=== PATIENT | female | born 1950 | race Caucasian/White ===

== ENCOUNTER 2017-08-30 09:52 | Emergency (ER) | payer OTHER, MEDICARE ==
[~2017-08-30] VITALS: Ht 165.1 cm; Wt 85.4 kg
[~2017-08-30 09:52] MED LIST: ACCUNEB SO1.25 MG/1 INH; CIPROFLOXIN HC2.5 M1 OPHTHALMIC; CYCLOBENZAPRINE10 MG PO; FLAGYL500 MG PO; HYDROCODONE-AP1 EAC6 PO; LEVAQUIN 500 M500 M2 PO; LISINOPRIL5 MG PO; NEXIUM40 MG PO; NOHOMEMEDICATIONS; NORCO 5-325 TA1 EACH PO; PREDNISONE 10 M10 MG PO; XANAX 0.5 MG0.5 MG PO; ZOFRAN ODT4 MG PO
[2017-08-30 10:19] LABS: ABSOLUTE EOSINOPHILS 0.1 thou/uL (0.0-0.7); ABSOLUTE LYMPHOCYTES 1.3 thou/uL (0.8-5.3); ABSOLUTE MONOCYTES 0.6 thou/uL (0.0-1.2); ABSOLUTE NEUTROPHILS 2.3 thou/uL (1.6-8.1); BASOPHILS 0.6 %; EOSINOPHILS 2.9 %; HEMATOCRIT 40.7 % (37.0-47.0); HEMOGLOBIN 13.5 gm/dL (12.0-15.0); MCH 27.2 pg (26.0-34.0); MCHC 33.1 g/dL (28.0-37.0); MCV 82.2 fL (80.0-100.0); MONOCYTES 13.5 %; NUCLEATED RBCS 0 /100WBC; PLATELET COUNT* 351 thou/uL (150-400); RBC 4.95 mil/uL (4.20-5.00); RDW-CV 14.2 % (10.5-14.5); WBC 4.4 thou/uL (4.0-11.0)
[2017-08-30 10:31] LABS: ANION GAP 7 mmol/L (7-16); BUN 16 mg/dL (7-18); CALCIUM 8.7 mg/dL (8.5-10.1); CHLORIDE 105 mmol/L (98-107); CO2 28 mmol/L (21-32); CREATININE 0.6 mg/dL (0.6-1.3); GLUCOSE 98 mg/dL (70-99); POTASSIUM 3.7 mmol/L (3.5-5.1); SODIUM 140 mmol/L (136-145)
[2017-08-30 10:39] LABS: ALBUMIN 3.6 g/dL (3.4-5.0); ALKALINE PHOSPHATASE 73 U/L (46-116); SGOT 22 U/L (15-37); SGPT 28 U/L (30-65); TOTAL BILIRUBIN 0.5 mg/dL (<0.1-1.0); TOTAL PROTEIN 7.8 g/dL (6.4-8.2); TROPONIN-I LEVEL <0.06 ng/mL (<0.06)
[2017-08-30 12:15] LABS: URINE BILIRUBIN NEGATIVE (Negative); URINE BLOOD TRACE (Negative); URINE CLARITY CLEAR; URINE COLOR YELLOW; URINE GLUCOSE-RANDOM NEGATIVE (Negative); URINE KETONES NEGATIVE (Negative); URINE LEUKOCYTES-REFLEX NEGATIVE (Negative); URINE NITRITE-REFLEX NEGATIVE (Negative); URINE PROTEIN NEGATIVE (Negative); URINE UROBILINOGEN 0.2 E.U./dl (0.2-1.0)
[2017-08-30] MEDS ORDERED: CARAFATE 1 GM TA1 G1 PO (12:39)
[2017-08-30] MEDS ORDERED: ZOFRAN ODT4 MG PO (12:39)
[2017-08-30] MEDS ORDERED: TRAMADOL 50 MG50 MG PO (12:39)
[2017-08-30 12:58] VITALS: BP 136/58
--- NOTE | 2017-08-30 15:50 | EKG ---
[place] [address] ELECTROCARDIOGRAM REPORT Name: ALEK HANNAH Room: [facility]#: [id number] Admission: 08/30/17 Attend Phys: Discharge: 08/30/17 Date of : 52 Report #: [id number] THIS REPORT FOR: //name// [facility] ED Test Date: 2017-08-30 Test Time: 09:58:00 Pat Name: ALEK KEITAANIEL Department: Room: Gender: F Operations/Dispatch: : 1950 Requested By: Javan Doan Order Number: [id number] MD: Connor Guo Measurements Intervals [place] Rate: 70 P: 27 PA: 130 QRS: -19 QRSD: 88 T: 8 QT: 388 QTc: 419 Interpretive Statements Sinus rhythm Abnormal R-wave progression, early transition Inferior infarct, old possible Baseline wander in lead(s) II,aVR,V1 No previous ECG available for comparison Electronically Signed On 08-30-2017 15:50:23 JUDO INSTRUCTOR by Connor Guo [email or web address] <ELECTRONICALLY SIGNED> By: Connor Guo MD, [facility] 08/30/17 [id number] [phone] Connor Guo MD, FAC /EPI
[2017-08-30] MEDS ORDERED: PRILOSEC 20 MG20 MG PO (23:52)
[2017-08-30] MEDS ORDERED: PROMS25 WY RECTAL ×2 (23:52→23:56)
[2017-08-30] MEDS ORDERED: PEPCID20 MG PO (23:52)
== END 2017-08-30 12:59 | disposition home or self-care (01) ==
LOC: M.ERS 09:52
PROVIDERS: Emergency Medicine Emergency Medical Services
DX: R07.89 Other chest pain (principal); K21.9 Gastro-esophageal reflux disease without esophagitis; F10.99 Alcohol use, unspecified with unspecified alcohol-induced disorder; Z90.710 Acquired absence of both cervix and uterus; Z98.890 Other specified postprocedural states; Z88.5 Allergy status to narcotic agent; Z88.1 Allergy status to other antibiotic agents

== ENCOUNTER 2017-08-30 21:32 | Emergency (ER) | payer OTHER, MEDICARE ==
[~2017-08-30] VITALS: Ht 162.6 cm; Wt 79.4 kg
--- NOTE | ~2017-08-30 | EKG ---
[place] [address] ELECTROCARDIOGRAM REPORT Name: ALEK HANNAH [id number] Admission: 08/30/17 Attend Phys: Discharge: 08/31/17 Date of : 52 Report #: [id number] THIS REPORT FOR: //name// [facility] ED Test Date: 2017-08-30 Test Time: 23:31:22 Pat Name: ALEK HANNAH Department: Room: Gender: F Sponge Diver: IZAIAH : 1950 Requested By: Louise Almeida Order Number: [id number] MD: Measurements Intervals [place] Rate: 74 P: 22 AK: 128 QRS: -17 QRSD: 96 T: -2 QT: 403 QTc: 448 Interpretive Statements Sinus rhythm Borderline left axis deviation Low voltage, precordial leads RSR' in V1 or V2, right VCD or RVH Borderline T abnormalities, diffuse leads Compared to ECG 08/30/2017 09:58:00 Low QRS voltage now present Right ventricular hypertrophy now present RSR' in V1 or V2 now present T-wave abnormality now present Myocardial infarct finding no longer present [email or web address] By: 30 30 Epiphany EpiphanyMD /FRANCO
[~2017-08-30 21:32] MED LIST changes: +CARAFATE 1 GM TA1 G1 PO; +TRAMADOL 50 MG50 MG PO
[2017-08-30 22:55] LABS: ABSOLUTE EOSINOPHILS 0.1 thou/uL (0.0-0.7); ABSOLUTE LYMPHOCYTES 0.8 thou/uL (0.8-5.3); ABSOLUTE MONOCYTES 0.7 thou/uL (0.0-1.2); ABSOLUTE NEUTROPHILS 4.3 thou/uL (1.6-8.1); BASOPHILS 0.8 %; EOSINOPHILS 1.5 %; HEMOGLOBIN 13.4 gm/dL (12.0-15.0); LYMPHOCYTES 13.4 %; MCH 27.3 pg (26.0-34.0); MCHC 32.8 g/dL (28.0-37.0); MCV 83.1 fL (80.0-100.0); MPV 7.8 fl. (7.2-11.1); NUCLEATED RBCS 0 /100WBC; PLATELET COUNT* 340 thou/uL (150-400); POLYS 72.3 %; RBC 4.93 mil/uL (4.20-5.00); RDW-CV 14.2 % (10.5-14.5)
[2017-08-30 23:04] LABS: ANION GAP 8 mmol/L (7-16); BUN 17 mg/dL (7-18); CALCIUM 8.6 mg/dL (8.5-10.1); CHLORIDE 103 mmol/L (98-107); CO2 29 mmol/L (21-32); CREATININE 0.8 mg/dL (0.6-1.3); GLUCOSE 116 mg/dL (70-99); SODIUM 140 mmol/L (136-145)
[2017-08-30 23:10] LABS: ALBUMIN 3.7 g/dL (3.4-5.0); ALKALINE PHOSPHATASE 76 U/L (46-116); LIPASE 137 U/L (73-393); SGOT 26 U/L (15-37); SGPT 33 U/L (30-65); TOTAL BILIRUBIN 0.3 mg/dL (<0.1-1.0); TROPONIN-I LEVEL <0.06 ng/mL (<0.06)
[2017-08-30] MEDS ORDERED: PEPCID20 MG PO (23:52)
[2017-08-30] MEDS ORDERED: PRILOSEC 20 MG20 MG PO (23:52)
[2017-08-30] MEDS ORDERED: PROMS25 WY RECTAL ×2 (23:52→23:56)
[2017-08-31 00:16] VITALS: BP 137/64
== END 2017-08-31 00:29 | disposition home or self-care (01) ==
LOC: M.ERS 21:32
PROVIDERS: Physician Assistant
DX: R11.2 Nausea with vomiting, unspecified (principal); F10.99 Alcohol use, unspecified with unspecified alcohol-induced disorder; K21.9 Gastro-esophageal reflux disease without esophagitis; Z88.1 Allergy status to other antibiotic agents; Z88.5 Allergy status to narcotic agent; Z90.710 Acquired absence of both cervix and uterus

== ENCOUNTER → 2018-04-16 | Outpatient (CLI) | payer OTHER, MEDICARE ==
[~2018-04-16] MED LIST changes: +PEPCID20 MG PO; +PRILOSEC 20 MG20 MG PO; +PROMS25 WY RECTAL
== END ==
LOC: M.RAD 16:02
DX: S22.080D Wedge compression fracture of T11-T12 vertebra, subsequent encounter for fracture with routine healing (principal); M54.41 Lumbago with sciatica, right side; M54.42 Lumbago with sciatica, left side; I70.0 Atherosclerosis of aorta; X58.XXXD Exposure to other specified factors, subsequent encounter

== ENCOUNTER → 2019-05-02 | Outpatient (CLI) | payer OTHER, MEDICARE ==
[2019-05-02 11:15] LABS: ABSOLUTE EOSINOPHILS 0.1 thou/uL (0.0-0.7); ABSOLUTE LYMPHOCYTES 1.2 thou/uL (0.8-5.3); ABSOLUTE MONOCYTES 0.5 thou/uL (0.0-1.2); ABSOLUTE NEUTROPHILS 2.8 thou/uL (1.6-8.1); BASOPHILS 0.8 %; EOSINOPHILS 2.6 %; HEMATOCRIT 35.5 % (37.0-47.0); HEMOGLOBIN 11.6 gm/dL (12.0-15.0); MCH 25.7 pg (26.0-34.0); MCHC 32.7 g/dL (28.0-37.0); MCV 78.7 fL (80.0-100.0); MONOCYTES 9.9 %; NUCLEATED RBCS 0 /100WBC; PLATELET COUNT* 341 thou/uL (150-400); POLYS 60.7 %; RBC 4.51 mil/uL (4.20-5.00); RDW-CV 16.6 % (10.5-14.5); WBC 4.7 thou/uL (4.0-11.0)
[2019-05-02 11:29] LABS: ALBUMIN 3.6 g/dL (3.4-5.0); ALKALINE PHOSPHATASE 81 U/L (46-116); ANION GAP 11 mmol/L (7-16); BUN 17 mg/dL (7-18); CALCIUM 8.8 mg/dL (8.5-10.1); CHLORIDE 103 mmol/L (98-107); CHOLESTEROL 208 mg/dL (<200); CO2 27 mmol/L (21-32); CREATININE 0.6 mg/dL (0.6-1.3); GLUCOSE 88 mg/dL (70-99); HDL CHOLESTEROL 66 mg/dL (>40); LDL CHOLESTEROL 131 mg/dL (<100); POTASSIUM 3.5 mmol/L (3.5-5.1); SERUM ASSESSMENT Clear; SGOT 14 U/L (15-37); SGPT 17 U/L (30-65); SODIUM 141 mmol/L (136-145); TC:HDL 3.2 Ratio (Not establshd); TOTAL BILIRUBIN 0.5 mg/dL (<0.1-1.0); TOTAL PROTEIN 7.6 g/dL (6.4-8.2); TRIGLYCERIDE 59 mg/dL (<150); TROPONIN-I LEVEL <0.06 ng/mL (<0.06); VLDL 12 mg/dL (<40)
[2019-05-02 15:29] LABS: % SATURATION 11 % (20-39); IRON 46 ug/dL (50-175)
== END ==
LOC: M.LAB 10:57
PROVIDERS: Family Medicine
DX: Z13.220 Encounter for screening for lipoid disorders (principal); R07.9 Chest pain, unspecified; D64.9 Anemia, unspecified

== ENCOUNTER → 2019-05-16 | Outpatient (CLI) | payer OTHER, MEDICARE ==
[2019-05-16 10:53] LABS: ABSOLUTE EOSINOPHILS 0.1 thou/uL (0.0-0.7); ABSOLUTE LYMPHOCYTES 1.3 thou/uL (0.8-5.3); ABSOLUTE MONOCYTES 0.5 thou/uL (0.0-1.2); ABSOLUTE NEUTROPHILS 2.5 thou/uL (1.6-8.1); BASOPHILS 0.7 %; EOSINOPHILS 2.9 %; HEMATOCRIT 36.3 % (37.0-47.0); HEMOGLOBIN 12.1 gm/dL (12.0-15.0); MCH 25.9 pg (26.0-34.0); MCHC 33.3 g/dL (28.0-37.0); MONOCYTES 10.9 %; MPV 7.7 fl. (7.2-11.1); NUCLEATED RBCS 0 /100WBC; PLATELET COUNT* 406 thou/uL (150-400); POLYS 55.5 %; RBC 4.66 mil/uL (4.20-5.00); RDW-CV 16.2 % (10.5-14.5); WBC 4.5 thou/uL (4.0-11.0)
[2019-05-16 10:59] LABS: CALCIUM 8.6 mg/dL (8.5-10.1); CREATININE 0.6 mg/dL (0.6-1.3)
== END ==
LOC: M.LAB 10:29
PROVIDERS: Family Medicine
DX: M85.80 Other specified disorders of bone density and structure, unspecified site (principal); E61.1 Iron deficiency; D64.9 Anemia, unspecified; Z68.31 Body mass index [BMI] 31.0-31.9, adult

== ENCOUNTER → 2019-12-06 | Outpatient (CLI) | payer OTHER, MEDICARE ==
[2019-12-06 10:06] LABS: ABSOLUTE EOSINOPHILS 0.1 thou/uL (0.0-0.7); ABSOLUTE LYMPHOCYTES 1.1 thou/uL (0.8-5.3); ABSOLUTE MONOCYTES 0.4 thou/uL (0.0-1.2); ABSOLUTE NEUTROPHILS 2.1 thou/uL (1.6-8.1); BASOPHILS 0.8 %; EOSINOPHILS 2.9 %; HEMATOCRIT 34.8 % (37.0-47.0); HEMOGLOBIN 11.3 gm/dL (12.0-15.0); LYMPHOCYTES 29.7 %; MCH 24.7 pg (26.0-34.0); MCHC 32.6 g/dL (28.0-37.0); MCV 75.6 fL (80.0-100.0); MONOCYTES 10.4 %; NUCLEATED RBCS 0 /100WBC; PLATELET COUNT* 376 thou/uL (150-400); POLYS 56.2 %; RDW-CV 15.4 % (10.5-14.5); WBC 3.6 thou/uL (4.0-11.0)
[2019-12-06 10:20] LABS: ANION GAP 8 mmol/L (7-16); BUN 19 mg/dL (7-18); CALCIUM 8.5 mg/dL (8.5-10.1); CHLORIDE 104 mmol/L (98-107); CO2 28 mmol/L (21-32); CREATININE 0.7 mg/dL (0.6-1.3); GLUCOSE 93 mg/dL (70-99); POTASSIUM 4.1 mmol/L (3.5-5.1); SODIUM 140 mmol/L (136-145)
[2019-12-06 10:24] LABS: ALBUMIN 3.2 g/dL (3.4-5.0); ALKALINE PHOSPHATASE 79 U/L (46-116); CHOLESTEROL 233 mg/dL (<200); HDL CHOLESTEROL 61 mg/dL (>40); LDL CHOLESTEROL 157 mg/dL (<100); SGOT 16 U/L (15-37); SGPT 30 U/L (30-65); TC:HDL 3.8 Ratio (Not establshd); TOTAL BILIRUBIN 0.3 mg/dL (<0.1-1.0); TOTAL PROTEIN 7.5 g/dL (6.4-8.2); TRIGLYCERIDE 79 mg/dL (<150); VLDL 16 mg/dL (<40)
[2019-12-06 10:29] LABS: SERUM ASSESSMENT Clear
== END ==
LOC: M.LAB 09:00
PROVIDERS: ATTEND Family Medicine
DX: I10 Essential (primary) hypertension (principal); R07.89 Other chest pain

== ENCOUNTER → 2020-01-07 | Outpatient (CLI) | payer OTHER, MEDICARE ==
--- NOTE | 2020-01-07 16:36 | CARDNUC ---
[place] [address] CARDIAC NUCLEAR IMAGING REPORT Name: HANNAHALEK D Room: [facility]#: [id number] Admission: 01/07/20 Attend Phys: Michelle Alcala DO Discharge: Date of : 52 Date of Service: 01/07/20 1634 Report #: [id number] THIS REPORT FOR: cc: Michelle Alcala Maggie M. DO Liston, Michael J. MD [facility] ~ APPROVED REPORT Imaging Protocol: Rest Tc-99m/Stress Tc-99m 1 day Study performed: 01/07/2020 13:00:00 Indication: Chest pain with headache. Patient Location: Out-Patient Stress Tech: Patricia Zaman Stress Nurse: Yuki Lezama RN NM Tech:EMMIE Vuong Ht: 5 ft 2 in Wt: 185 lbs BSA: 1.85 m2 BMI: 33.83 Medical History Medical History: Chest pain with headache in back of head, HTN, Obesity. Medications: Lisinopril. Allergies: Codeine, Dilaudid. Cardiac Risk Factors: Age, HTN, Obesity. Previous Cardiac Procedures: None Pretest Chest Pain Characteristics: No chest pain Exercise History: Indeterminate Physical Disabilities: Arthritis, knee discomfort. Meds Held (24 hrs): None Resting Data Rest SPECT myocardial perfusion imaging was performed in supine position 30 minutes following the intravenous injection of 10.0 mCi of Tc-99m Sestamibi. Time of rest injection: 1315 Date: 01/07/2020 The images were gated to evaluate regional wall motion and calculate left ventricular ejection fraction. Administration Route: IV Administration Site: Left AC Exercise Stress At peak stress, the patient was injected intravenously with 33.7m[place] [address] CARDIAC NUCLEAR IMAGING REPORT Name: ALEK HANNAH Room: [facility]#: [id number] Admission: 01/07/20 Attend Phys: Michelle Alcala DO Discharge: Date of : 52 Date of Service: 01/07/20 1634 Report #: [id number] of Tc-99m Sestamibi. Time of stress injection: 1454 Date: 01/07/2020 Administration Route: IV Administration Site: Left AC Gated Stress SPECT was performed 30 minutes after stress injection. The images were gated to evaluate regional wall motion and calculate left ventricular ejection fraction. Prone imaging was performed. Stress Test Details Stress Test: Exercise stress testing was performed using a Fer protocol. HR Max Heart Rate (APMHR): 152 bpm Resting HR: 59 bpm Target HR (85% APMHR): 129 bpm Max HR Achieved: 145 bpm % of APMHR: 95 Recovery HR: 78 bpm HR response to stress: Normal HR response to stress BP Resting BP: 159/82 mmHg Max BP: 233/93 mmHg Recovery BP: 167/95 mmHg BP response to stress: Abnormal hypertensive response to stress. ECG Resting ECG: Sinus Rhythm Stress ECG: Sinus Tachycardia ST Change: Horizontal ST depression Maximum ST Deviation: 0.5 mm Arrhythmia: None Recovery ECG: Sinus Rhythm Recovery ST Change: Horizontal ST depression Recovery ST Deviation: 0.5 mm Recovery Arrhythmia: None Clinical Reason for Termination: Maximal effort, Completed protocol, Patient Request Stress Symptoms: Dyspnea, Fatigue. Exercise duration: 5 min 38 sec Exercise capacity: 7.05 METs Overall Exercise Capacity for Age: Normal The patient exhibited limited exercise tolerance. [place] [address] CARDIAC NUCLEAR IMAGING REPORT Name: ALEK HANNAH Room: [facility]#: [id number] Admission: 01/07/20 Attend Phys: Michelle Alcala DO Discharge: Date of : 52 Date of Service: 01/07/20 1634 Report #: [id number] was achieved. There were no significant cardiac symptoms. Nurse Comments A 69 year old female presented for a Fer protocol Nuclear Stress test r/t chest pain associated with headache in back of head and HTN. Treadmill tolerated to middle of stage 2, target HR achieved. Patient stated she could not go any further, needed to stop. Recovery unremarkable. Patient was escorted by staff to Nuclear Medicine for imaging. Patient remained asymptomatic with HTN and stated she felt good at end of recovery. Stress ECG Conclusion Baseline twelve-lead EKG shows sinus rhythm without significant ST segment or T wave abnormality. With exercise the EKG shows sinus tachycardia with 0.[address] segment depression that is horizontal. There were no significant stress-induced arrhythmias. Study Quality Study: Good Artifact: Mild Breast artifact Study Data At rest, the left ventricular ejection fraction was 78%.. Post stress, the left ventricular ejection was 65%.. TID = 1.11. Perfusion Perfusion images show a small region of mild photopenia involving the mid to apical anterior wall. Review of the raw data shows significant breast attenuation artifact. No other significant fixed or reversible defects were noted. Wall Motion Normal left ventricular wall motion. Nuclear Conclusion ECG Findings: non-diagnostic Clinical Findings: negative for ischemia Nuclear Findings: negative for ischemia Exercise Capacity: Limited Left Ventricular Function: normal Risk Study: low Perfusion study show no evidence of ischemia. The persistent photopenia noted in the anterior wall is likely due to breast attenuation artifact. Global LV systolic function is normal on gated studies. This [place] [address] CARDIAC NUCLEAR IMAGING REPORT Name: ALEK HANNAH [facility] Cade#: [id number] Admission: 01/07/20 Attend Phys: Michelle Alcala DO Discharge: Date of : 52 Date of Service: 01/07/20 1634 Report #: [id number] <Conclusion> Baseline twelve-lead EKG shows sinus rhythm without significant ST segment or T wave abnormality. With exercise the EKG shows sinus tachycardia with 0.[address] segment depression that is horizontal. There were no significant stress-induced arrhythmias. <ELECTRONICALLY SIGNED> By: Artemio Reeves MD, FACC 01/07/20 1634 1634 1634 Artemio Reeves MD, FACC /INF
== END ==
LOC: M.NUC 12-17 08:00
PROVIDERS: ATTEND Family Medicine
DX: Z11.59 Encounter for screening for other viral diseases (principal); R07.9 Chest pain, unspecified

== ENCOUNTER → 2020-11-16 | Outpatient (CLI) | payer MEDICARE | LOC: M.ULTRA 13:12 | DX: R60.0 Localized edema (principal) ==